=== PATIENT | female | born 1940 | race Caucasian/White ===

== ENCOUNTER 2019-03-28 13:04 | Emergency (ER) | payer MEDICARE, OTHER ==
[~2019-03-28] VITALS: Ht 177.8 cm; Wt 62.6 kg
--- OUTSIDE RECORDS SUMMARY | 2019-03-28 13:11 | XMS REPORT ---
Author Author Christian Granda Organization [employer] Address Unknown Phone Unavailable Care Team Providers Care Medical Assembler Name Role Phone Christian Granda CP Unavailable Allergies, Adverse Reactions, Alerts Substance Reaction Event Type Codeine Sulfate Info Not Available Drug Allergy Problems Problem Type Condition Code Onset Dates Condition Status Assessment Encounter for screening for malignant neoplasm of skin Z12.83 Active Assessment Actinic keratosis L57.0 Active Problem Personal history of other malignant neoplasm of skin Z85.828 Active Assessment Lentigo L81.4 Active Assessment Seborrheic keratoses L82.1 Active Assessment Benign neoplasm of skin of trunk, except scrotum D23.5 Active Medications Medication Code System Code Instructions Start Date End Date Status Dosage Provera [facility] [address]-04 not defined Vitamin B 12 [facility] [address] not defined Synthroid [facility] [address]-86 not defined Zocor [facility] [address]-26 not defined Estradiol [facility] [address]-73 not defined Vitamin D [facility] [address]-87 not defined Adalat CC [facility] [address]-13 not defined Procedures Procedure Coding System Code Date DESTROY LESIONS, 2-14, EACH CPT-4 11950 Aug 24, 2016 Office Visit, Est Pt., Level 4 CPT-4 50722 Aug 24, 2016 DESTROY BENIGN/PREMAL LESION CPT-4 66033 Aug 24, 2016 Vital Signs Date/Time: Aug 24, 2016 Blood Pressure Diastolic 78 mm Hg Blood Pressure Systolic 132 mm Hg Cardiac Monitoring Heart Rate 80 /min BMI 19.52 Index Weight 140 lbs Height 71 in Results No Known Results Summary Purpose [employer] Submission
[2019-03-28] MEDS ORDERED: AUGMENTIN 875 MG TAB (AMOXICILLIN/CLAVULANATE) PO STA (13:23)
[2019-03-28] MEDS ORDERED: NEO/POLY/BAC (NEOSPORIN) OINT 15 GM TUBE TOP STA (13:23)
[2019-03-28 13:29] VITALS: BP 150/56
[2019-03-28] MEDS ORDERED: ACETAMINOPHEN 325 MG TABLET PO ONE (13:30)
--- NOTE | 2019-03-28 13:36 | ED Integumentary General ---
General Chief Complaint: Skin/Wound Problems Stated Complaint: LT HAND SKIN TEAR Nursing Triage Note: PT HAS A U-SHAPED SKIN TEAR ON THE DORSAL SIDE OF HER LEFT HAND AFTER BATHING HER DOG AND HE SCRATCH HER. THE DOG IS UP TODATEON SHOTS AND THE PT STATES SHE IS UP TO DATEON HER TETANUS. History of Present Illness Date Seen by Provider: Mar 28, 2019 Time Seen by Provider: 13:15 Initial Comments The patient is an 78-year-old female whose tetanus is up-to-date. She presents with concern for a superficial skin tear to the dorsal aspect of her left hand, radial side, with onset just prior to arrival when she was bathing her small dog and it playfully nipped at her. Wound is hemostatic and she endorses no discomfort of any kind to the site. The dog's immunizations are up-to-date. Patient denies any pain to digits or hand or wrist or forearm or elbow and is resting comfortably in absolutely no distress. No therapy for discomfort prior to arrival. The patient did use mupirocin on the wound prior to coming here. Allergies and Home Medications Allergies Coded Allergies: codeine (Verified Allergy, Intermediate, ALTERED MENTAL STATUS, 03/28/19) Patient Home Medication List Home Medication List Reviewed: Yes Review of Systems Review of Systems Constitutional: see HPI All Other Systems Reviewed Negative Unless Noted: Yes Past Eqsvffr-Zbdiir-Axxdot Hx Past Med/Social Hx: Reviewed Nursing Past Med/Soc Hx Patient Social History Alcohol Use: Denies Use Recreational Drug Use: No Smoking Status: Never a Smoker 2nd Hand Smoke Exposure: No Recent Foreign Travel: No Contact w/Someone Who Travel: No Recent Infectious Disease Expo: No Physical Abuse: No Sexual Abuse: No Mistreated: No Fear: No Family Medical History Reviewed Nursing Family Hx Physical Exam Vital Signs Vital Signs - First Documented 03/28/19 13:10 Temp 98.1 Pulse 70 Resp 18 B/P (MAP) 150/56 (87) Pulse Ox 98 O2 Delivery Room Air Capillary Refill : Less Than 3 Seconds General Appearance: no apparent distress Comments This is an elderly female appearing nontoxic and in no acute distress. Head is normocephalic and atraumatic. Neck is supple and nontender. Oropharynx is moist. Lungs are clear to auscultation at all stations. There is normal S1 and S2 without rubs or gallops At refill is appropriate, less 2 seconds globally. Abdomen is soft, nontender and nondistended. Skin is warm and dry without cyanosis, clubbing or edema. Psychiatrically, the patient given strict appropriate mood and affect and is alert. From a musculoskeletal standpoint, evaluation of the left upper extremity reveals a superficial skin tear which is flap-like and about 8 cm in length and is hemostatic to the dorsal radial aspect of the left hand. There is no tenderness to the site. There is no pain with ranging of left digits, wrist, elbow or shoulder. The left upper extremity is neurovascularly intact with strength 5 out of 5, sensation intact to light touch in all nerve distributions, radial pulse 2+, capillary refill less than 2 seconds, hand warm and well-perfused. Procedures/Interventions Wound Location: Upper Extremities Wound Length (cm): 8 Wound's Depth, Shape: superficial, flap Wound Explored: clean Other Closure Supply: Wound Adhesive Layer Closure?: 1 Progress/Results/Core Measures Results/Orders My Orders Orders - ACE LOVELL MD Amoxicillin/Clavulanate Tablet (Augmenti (03/28/19 13:23) South/Poly/Danielle Topical Ointment (Neosporin (03/28/19 13:23) Acetaminophen Tablet/Caplet (Tylenol T (03/28/19 13:30) Vital Signs/I&O 03/28/19 13:10 Temp 98.1 Pulse 70 Resp 18 B/P (MAP) 150/56 (87) Pulse Ox 98 O2 Delivery Room Air Blood Pressure Mean: 87 Progress Progress Note : Time: 13:34 Progress Note Clinical examination reassuring. Superficial skin tear by the patient's dog whose immunizations are up-to-date. The patient's tetanus is up-to-date. Patient has absolutely no pain and there is only a superficial skin tear so I feel no x- rays are indicated in this case. Will wash out wound and apply Neosporin and the n used Dermabond to repair. We'll discharge with Augmentin and the patient may use Tylenol as needed for discomfort at home. She understands and agrees with the plan of care. Patient is counseled to follow up very closely with primary care in next 1-2 days and to return immediately if symptoms worsen or if other new symptoms or concerns develop. HER answer. Departure Impression Primary Impression: Skin tear of left hand without complication Qualified Codes: S61.412A - Laceration without foreign body of left hand, initial encounter Additional Impression: Dog bite of left hand without complication Qualified Codes: S61.452A - Open bite of left hand, initial encounter; W54.0XXA - Bitten by dog, initial encounter Disposition: HOME, SELF-CARE Condition: Improved Departure-Patient Inst. Referrals: REINA ONEAL DO (PCP/Family) Primary Care Physician Patient Instructions: Wound Care, Wound Care (DC) Add. Discharge Instructions: Follow-up very closely with her primary care physician in the next 1-2 days. You may use Tylenol as needed for discomfort at home. Take the Augmentin until the prescription is gone. Return right away for worsening symptoms or other new concerns. Scripts Amoxicillin/Potassium Clav (Augmentin 875-125 Tablet) 1 Each Tablet 1 TAB PO BID for 10 Days, #20 TAB 0 Refills Prov: ACE LOVELL MD 03/28/19 ACE LOVELL MD Mar 28, 2019 13:35
[2019-03-28] MEDS ORDERED: AMOX-358 PO (13:39)
== END 2019-03-28 13:54 | disposition home or self-care (01) ==
LOC: EDUNIT# 13:04 → ER FS 13:07
DX: S61.452A Open bite of left hand, initial encounter (principal); Z88.5 Allergy status to narcotic agent; W54.0XXA Bitten by dog, initial encounter

== ENCOUNTER → 2019-06-20 | Outpatient (CLI) | payer MEDICARE, OTHER ==
[~2019-06-20] MED LIST: AMOX-358 PO
--- NOTE | 2019-06-20 15:42 | Diagnostic Imaging Report ---
PROCEDURE: US abdomen complete. TECHNIQUE: Multiple real-time grayscale images were obtained over the abdomen in various projections. INDICATION: Right upper quadrant pain. FINDINGS: The liver appears normal. Gallbladder appears normal. There is no intra or extrahepatic bile duct dilatation. The partially visualized pancreas is normal where seen. Portions of its tail and lower head are obscured. Spleen is nonfocal and normal in size. The aorta is nonaneurysmal but does show echogenic smyth, likely atherosclerotic plaque. The unobstructed right kidney measures 9.5 cm and appears normal. The left kidney is surgically absent. There is no ascites and there is no fluid collection. IMPRESSION: Solitary unobstructed normal right kidney, absent left kidney. No hepatobiliary abnormality, ascites, or fluid collection. Dictated by: Dictated on workstation # [id number]
== END ==
LOC: RAD 08:16
PROVIDERS: ATTEND Pediatrics
DX: R10.11 Right upper quadrant pain (principal); Z90.5 Acquired absence of kidney
CPT/HCPCS: 76700

== ENCOUNTER → 2019-07-05 | Outpatient (CLI) | payer MEDICARE, OTHER ==
[~2019-07-05] MED LIST changes: +CATHETER FLUSH 10 ML SYR IV PRN
--- NOTE | 2019-07-05 16:20 | Diagnostic Imaging Report ---
INDICATION: Right upper quadrant pain. TECHNIQUE: Patient was administered 4.5 mCi technetium 99m Choletec intravenously and imaging over the abdomen was performed. At one hour, patient ingested 8 ounces of Ensure and a gallbladder ejection fraction was calculated. FINDINGS: There is homogeneous uptake of activity by the liver. Prompt excretion of activity into the common duct with passage into the gallbladder is noted. There is normal passage into the small bowel. Gallbladder ejection fraction is normal at 42%. IMPRESSION: Normal HIDA scan and gallbladder ejection fraction. Dictated by: Dictated on workstation # [id number]
== END ==
LOC: CARD 12:31
PROVIDERS: ATTEND Pediatrics
DX: R10.11 Right upper quadrant pain (principal)
CPT/HCPCS: 78227

== ENCOUNTER → 2019-07-07 | Outpatient (CLI) | payer MEDICARE, OTHER ==
[~2019-07-07] MED LIST changes: -CATHETER FLUSH 10 ML SYR IV PRN
[2019-07-07 14:25] LABS: CALCIUM 9.6 MG/DL (8.5-10.1); CREATININE SERUM 1.27 MG/DL (0.60-1.30); POTASSIUM 4.4 MMOL/L (3.6-5.0)
== END ==
LOC: LAB FS 13:16
PROVIDERS: ATTEND Pediatrics
DX: R10.11 Right upper quadrant pain (principal)
CPT/HCPCS: 36415; 80048

== ENCOUNTER → 2019-07-10 | Outpatient (CLI) | payer MEDICARE, OTHER ==
--- NOTE | 2019-07-10 15:49 | Diagnostic Imaging Report ---
PROCEDURE: CT abdomen and pelvis without contrast. TECHNIQUE: Multiple contiguous axial images were obtained through the abdomen and pelvis without the use of intravenous contrast. Auto Exposure Controls were utilized during the CT exam to meet ALARA standards for radiation dose reduction. INDICATION: Epigastric pain and nausea. COMPARISON: No prior CT studies are available for comparison. FINDINGS: Lung bases are free of acute infiltrates. No discrete liver mass is identified. Gallbladder appears to be contracted. No biliary ductal dilatation is seen. Pancreas is atrophic. Spleen is small. No adrenal mass is seen. The left kidney is surgically absent. No mass in the left renal fossa is identified. Right kidney does contain a tiny nonobstructing calculus. No hydronephrosis is identified. Aorta and iliac vessels are heavily calcified but nonaneurysmal. The small and large bowel loops are normal in caliber. There is no obstruction. There is moderate stool throughout the colon. No ascites is noted. No definite abdominal or pelvic lymphadenopathy is seen. 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 IMPRESSION: 1. Nonobstructing right-sided nephrolithiasis. Left kidney is surgically absent. 2. Moderate stool throughout the colon suggestive of constipation. 3. No acute feature in the abdomen or pelvis is identified. Dictated by: Dictated on workstation # [id number]
== END ==
LOC: RAD 15:03
PROVIDERS: ATTEND Pediatrics
DX: N20.0 Calculus of kidney (principal); R11.0 Nausea; Z90.5 Acquired absence of kidney
CPT/HCPCS: 74176

== ENCOUNTER 2019-09-17 22:24 | Emergency (ER) | payer MEDICARE, OTHER ==
[~2019-09-17] VITALS: Ht 147 cm; Wt 61.4 kg
[2019-09-17] MEDS ORDERED: fentaNYL INJECTION 100 MCG/2 ML AMP IVP ONE (22:45)
[2019-09-17] MEDS ORDERED: PANTOPRAZOLE 40 MG (PROTONIX) VIAL IV ONE (22:45)
--- NOTE | 2019-09-17 22:54 | ED Abdominal Pain ---
General Stated Complaint: ABD PAIN Source of Information: Patient, Family (son Nahed) Exam Limitations: No Limitations History of Present Illness Date Seen by Provider: Sep 17, 2019 Time Seen by Provider: 22:36 Initial Comments The patient presents to ER by private conveyance with her son and chief complaint of 10 days progressively worsening abdominal pain wrapping across the anterior abdomen worse with movement, lying flat, bending over or standing up. She's not having any nausea or vomiting. She rates the pain as an 8 out of 10. She was able to pass a normal formed stool today and then 2 small soft watery stools since then. She does not take Tylenol or ibuprofen because she has a history of left kidney resection secondary to cancer. No radiation or chemotherapy. She also had breast cancer last year but no radiation or chemotherapy. She also had her appendix taken out and a partial colon resection secondary to a perforation by colonoscopy. She does not routinely take pain medications. She follows with Dr. Kidd and recently he is been treating her for stomach ulcers with Carafate and acid reducers. She has not taken any antacids in the past 10 days for her stomach pain. She denies any fevers or chills. She has a history of left carotid endarterectomy and her right they are just watching it's at 79% for the past several years. Allergies and Home Medications Allergies Coded Allergies: codeine (Verified Allergy, Intermediate, ALTERED MENTAL STATUS, 03/28/19) Home Medications Amoxicillin/Potassium Clav 1 Each Tablet, 1 TAB PO BID Prescribed by: ACE LOVELL on 03/28/19 2643 Patient Home Medication List Home Medication List Reviewed: Yes Review of Systems Review of Systems Constitutional: No chills, No diaphoresis, No fever EENTM: No Blurred Vision, No Double Vision Respiratory: Denies Cough, Denies Shortness of Air Cardiovascular: See HPI; Denies Chest Pain, Denies Edema Gastrointestinal: See HPI, Abdominal Pain; Denies Constipated; Diarrhea; Denies Nausea Genitourinary: Denies Burning, Denies Discharge Musculoskeletal: No back pain, No joint pain Skin: No change in color, No pruritus, No rash Psychiatric/Neurological: Denies Anxiety, Denies Depressed All Other Systems Reviewed Negative Unless Noted: Yes Past Asrtoho-Gazxom-Slydrd Hx Patient Social History Alcohol Use: Denies Use Recreational Drug Use: No Smoking Status: Current Everyday Smoker Type Used: Cigarettes (0.25 ppd) 2nd Hand Smoke Exposure: No Recent Foreign Travel: No Contact w/Someone Who Travel: No Physical Exam Vital Signs Capillary Refill : Height/Weight/BMI Height: 5'10.00" Weight: 138lbs. oz. 62.925897ll; BMI Method:Stated General Appearance: WD/WN, mild distress HEENT: PERRL/EOMI, pharynx normal Neck: full range of motion, normal inspection Respiratory: chest non-tender, lungs clear, normal breath sounds, no respiratory distress, no accessory muscle use Cardiovascular: normal peripheral pulses, regular rate, rhythm, no edema, meade tolic murmur (3/6) Peripheral Pulses: 2+ Radial Pulses (R), 2+ Radial Pulses (L) Gastrointestinal: normal bowel sounds (active), soft, no organomegaly; No guarding, No rebound; tenderness (across the umbilicus right and left.), other (abdominal bruit auscultated.) Extremities: normal range of motion, non-tender, normal capillary refill Neurologic/Psychiatric: alert, normal mood/affect, oriented x 3 Skin: normal color, warm/dry Focused Exam Lactate Level 09/17/19 22:51: Lactic Acid Level 1.32 Lactic Acid Level Laboratory Tests Test 09/17/19 22:51 Lactic Acid Level 1.32 MMOL/L (0.50-2.00) Progress/Results/Core Measures Results/Orders Lab Results Laboratory Tests Test 09/17/19 22:30 09/17/19 22:51 09/17/19 23:10 Range/Units Urine Color YELLOW Urine Clarity CLEAR Urine pH 6.0 5-9 Urine Specific [place] 10.10 1.016-1.022 Urine Protein NEGATIVE NEGATIVE Urine Glucose (UA) NEGATIVE NEGATIVE Urine Ketones NEGATIVE NEGATIVE Urine Nitrite NEGATIVE NEGATIVE Urine Bilirubin NEGATIVE NEGATIVE Urine Urobilinogen 0.2 < = 1.0 MG/DL Urine Leukocyte Esterase NEGATIVE NEGATIVE Urine RBC (Auto) NEGATIVE NEGATIVE Urine RBC NONE /HPF Urine WBC 2-5 /HPF Urine Squamous Epithelial Cells 10-25 H /HPF Urine Crystals NONE /LPF Urine Bacteria TRACE /HPF Urine Casts PRESENT /LPF Urine Hyaline Casts 2-5 H /LPF Urine Mucus NEGATIVE /LPF Urine Culture Indicated NO White Blood Count 9.4 4.3-11.0 10^3/uL Red Blood Count 4.07 L 4.35-5.85 10^6/uL Hemoglobin 13.1 11.5-16.0 G/DL Hematocrit 40 35-52 % Mean Corpuscular Volume 98 80-99 FL Mean Corpuscular Hemoglobin 32 25-34 PG Mean Corpuscular Hemoglobin Concent 33 32-36 G/DL Red Cell Distribution Width 12.0 10.0-14.5 % Platelet Count 264 130-400 10^3/uL Mean Platelet Volume 10.5 H 7.4-10.4 FL Neutrophils (%) (Auto) 62 42-75 % Lymphocytes (%) (Auto) 24 12-44 % Monocytes (%) (Auto) 12 0-12 % Eosinophils (%) (Auto) 1 0-10 % Basophils (%) (Auto) 1 0-10 % Neutrophils # (Auto) 5.8 1.8-7.8 X 10^3 Lymphocytes # (Auto) 2.2 1.0-4.0 X 10^3 Monocytes # (Auto) 1.2 H 0.0-1.0 X 10^3 Eosinophils # (Auto) 0.1 0.0-0.3 10^3/uL Basophils # (Auto) 0.1 0.0-0.1 10^3/uL Sodium Level 137 135-145 MMOL/L Potassium Level 4.2 3.6-5.0 MMOL/L Chloride Level 100 98-107 MMOL/L Carbon Dioxide Level 23 21-32 MMOL/L Anion Gap 14 5-14 MMOL/L Blood Urea Nitrogen 24 H 7-18 MG/DL Creatinine 1.39 H 0.60-1.30 MG/DL Estimat Glomerular Filtration Rate 36 BUN/Creatinine Ratio 17 Glucose Level 110 H 70-105 MG/DL Lactic Acid Level 1.32 0.50-2.00 MMOL/L Calcium Level 9.8 8.5-10.1 MG/DL Corrected Calcium 9.7 8.5-10.1 MG/DL Total Bilirubin 0.2 0.1-1.0 MG/DL Aspartate Amino Transf (AST/SGOT) 23 5-34 U/L Alanine Aminotransferase (ALT/SGPT) 13 0-55 U/L Alkaline Phosphatase 92 40-136 U/L Total Protein 8.1 6.4-8.2 GM/DL Albumin 4.1 3.2-4.5 GM/DL Lipase 48 8-78 U/L D-Dimer 1.81 H 0.00-0.49 UG/ML My Orders Orders - LAMAR PACE Ua Culture If Indicated (09/17/19 22:26) Ct Abdomen/Pelvis Wo (09/17/19 22:44) Ed Iv/Invasive Line Start (09/17/19 22:44) Fentanyl Injection (Sublimaze Injection (09/17/19 22:45) Pantoprazole Injection (Protonix Injecti (09/17/19 22:45) Cbc With Automated Diff (09/17/19 22:44) Comprehensive Metabolic Panel (09/17/19 22:44) Lactic Acid Analyzer (09/17/19 22:44) Lipase (09/17/19 22:44) Fibrin Degradation Products (09/17/19 23:30) Lidocaine 2% Viscous 15 Ml (Xylocaine Vi (09/18/19 00:00) Antacid Suspension (Mylanta Suspension (09/18/19 00:00) Medications Given in ED Current Medications Medications Dose Ordered Sig/Brenda Route Start Time Stop Time Status Last Admin Dose Admin Al Hydrox/Mg Hydrox/Simethicone 30 ml ONCE ONCE PO 09/18/19 00:00 09/18/19 00:01 DC 09/17/19 23:59 30 ML Fentanyl Citrate 50 mcg ONCE ONCE IVP 09/17/19 22:45 09/17/19 22:47 DC 09/17/19 22:59 50 MCG Lidocaine HCl 15 ml ONCE ONCE PO 09/18/19 00:00 09/18/19 00:01 DC 09/17/19 23:59 15 ML Pantoprazole 40 mg ONCE ONCE IV 09/17/19 22:45 09/17/19 22:47 DC 09/17/19 22:59 40 MG Progress Progress Note #1: Time: 22:55 Progress Note Lactic acid thinking about mesenteric ischemia. Her abdominal bruit she says no one has ever mentioned before. She has a cardiac murmur which could explain the bruit. The pattern of a 10 day progressive pain in her abdomen does not match with a dissection or tear of the intima. She does not have any hemodynamic instability or diminished pulse pressures in her legs or feet. We can get a d- dimer which will help us rule out out but will be useless if it's positive. GI would be most likely, bowel obstruction would also be possible or even early diverticulitis. Because of her history of nephrectomy we will be able to use contrast for an angiogram of her abdominal aorta that we can at least look at it on a noncontrast CT. For her pain we'll give her 50 g of fentanyl. Her vital signs are aseptic. Basic labs to include a lipase for pancreatitis. If her CT is unremarkable we could trial a GI cocktail see if that helps her symptoms. Progress Note #2: Time: 23:54 Progress Note The patient's pain is significantly improved with fentanyl. She still having some discomfort so we'll try a GI cocktail see if this can help us locate a source of her discomfort. She has a benign abdominal exam now and aseptic vital signs. Normal lactic acid makes a significant mesenteric ischemia unlikely. D- dimer failed to rule out. No evidence of bowel obstruction noted on CT. Progress Note #3: Time: 00:47 Progress Note The GI cocktail did not help her discomfort at all. She is however much more comfortable and we are unable to locate any emergent pathology. She still has aseptic vital signs and a benign exam. She still having mild discomfort that's made better by sitting up. She says she's had ultrasound and HIDA scan of her gallbladder. Were not able to rule out a dissection or even a significant atherosclerotic or ischemic disease of the mesentery so perhaps a MRA could be useful on the outpatient basis. We will recommend she follow up with primary care this week to discuss further workup. We have given her return precautions. We'll also provide her with a few hydrocodone to help in case the pain gets out of control. Diagnostic Imaging Diagonstic Imaging: CT (without IV contrast) Plain Films/CT/US/NM/MRI: abdomen, pelvis Comments Heavy atherosclerosis in the abdominal aorta without obvious dissection or aneurysm. 3 mm nonobstructing stone in the solitary right kidney. Post left nephrectomy. Otherwise unremarkable exam with no acute findings. Reviewed: Reviewed [place] Hawk Study, Reviewed by Me Departure Impression Primary Impression: Right-sided abdominal pain of unknown etiology Disposition: 01 HOME, SELF-CARE Condition: Improved Departure-Patient Inst. Decision time for Depature: 00:48 Referrals: TREY KIDD MD (PCP/Family) Primary Care Physician Patient Instructions: Acute Abdomen (Belly Pain) Add. Discharge Instructions: Stay well-hydrated with plenty of fluids. You may use the hydrocodone one tablet every 6 hours as needed for severe pain keeping you from being functional. If you use hydrocodone will cause constipation and I would recommend MiraLAX 1 capful in 6 ounces of fluids daily. Please call Dr. Kidd and request follow-up appointment for further workup of your abdominal discomfort. If you have severe, unrelenting pain, nausea or vomiting, fever or other worrisome symptoms then please return to the ER. Scripts Hydrocodone Bit/Acetaminophen (Hydrocodone/Acetaminophen 5/325mg Tablet) 1 Tab Tab 1 EACH PO Q4-6HR PRN for PAIN-MODERATE MDD 10 for 3 Days, #10 TAB 0 Refills Prov: LAMAR PACE 09/18/19 Copy Copies To 1: TREY KIDD MD, TITUS J Sep 17, 2019 22:54 POS
[2019-09-17 22:56] LABS: BACTERIA,URINE TRACE /HPF; BILIRUBIN,URINE NEGATIVE (NEGATIVE); CLARITY,URINE CLEAR; COLOR,URINE YELLOW; GLUCOSE, URINE (UA) NEGATIVE (NEGATIVE); KETONES,URINE NEGATIVE (NEGATIVE); LEUKOCYTE ESTERASE ,URINE NEGATIVE (NEGATIVE); NITRITE,URINE NEGATIVE (NEGATIVE); PROTEIN,URINE NEGATIVE (NEGATIVE)
[2019-09-17 23:01] LABS: BASOPHILS % (AUTO) 1 % (0-10); EOSINOPHILS % (AUTO) 1 % (0-10); HEMATOCRIT 40 % (35-52); HEMOGLOBIN 13.1 G/DL (11.5-16.0); LYMPHOCYTES # (AUTO) 2.2 X 10^3 (1.0-4.0); LYMPHOCYTES % (AUTO) 24 % (12-44); MEAN CORPUSCULAR HEMOGLOBIN 32 PG (25-34); MEAN CORPUSCULAR HGB CONC 33 G/DL (32-36); MEAN CORPUSCULAR VOLUME 98 FL (80-99); MEAN PLATELET VOLUME 10.5 FL (7.4-10.4); MONOCYTES # (AUTO) 1.2 X 10^3 (0.0-1.0); MONOCYTES % (AUTO) 12 % (0-12); NEUTROPHILS # (AUTO) 5.8 X 10^3 (1.8-7.8); NEUTROPHILS % (AUTO) 62 % (42-75); PLATELET COUNT 264 10^3/uL (130-400); WHITE BLOOD COUNT 9.4 10^3/uL (4.3-11.0)
[2019-09-17 23:02] LABS: BASOPHILS # (AUTO) 0.1 10^3/uL (0.0-0.1); EOSINOPHILS # (AUTO) 0.1 10^3/uL (0.0-0.3)
[2019-09-17 23:23] LABS: ALBUMIN 4.1 GM/DL (3.2-4.5); BILIRUBIN,TOTAL 0.2 MG/DL (0.1-1.0); CALCIUM 9.8 MG/DL (8.5-10.1); CREATININE SERUM 1.39 MG/DL (0.60-1.30); POTASSIUM 4.2 MMOL/L (3.6-5.0); TOTAL PROTEIN 8.1 GM/DL (6.4-8.2)
[2019-09-18] MEDS ORDERED: ANTACID SUSP 30 ML UDC (MYLANTA) PO ONE
[2019-09-18] MEDS ORDERED: LIDOCAINE 2% VISCOUS 15 ML UDC PO ONE
[2019-09-18] MEDS ORDERED: ACHD5005 PO (00:50)
[2019-09-18 01:00] VITALS: BP 166/74
[2019-09-18] MEDS ORDERED: RX-HYDROCODONE/APAP 5/325 MG #4 TAB PK PO PRN (01:00)
--- NOTE | 2019-09-18 07:25 | Diagnostic Imaging Report ---
CT ABDOMEN/PELVIS WO TECHNIQUE: Unenhanced CT imaging of the abdomen and pelvis was performed. 2-D reformats are created and submitted for interpretation. Automatic exposure controls were utilized to optimize patient dose. INDICATION: Lower abdominal pain COMPARISON: 07/10/2019 FINDINGS: Evaluation of the abdominal viscera is mildly limited without contrast. Lower chest: The lung bases are clear. No pericardial or pleural effusion. Peritoneum: Emphysema is noted in lung bases. Stable line within the left lung base is also noted which may be from prior biopsy or resection. Liver and biliary system: Unenhanced liver is normal. The gallbladder is normal. No biliary duct obstruction. Spleen and Pancreas: Spleen is normal. Unenhanced pancreas is grossly normal. Adrenals: Normal. tract: Status post left nephrectomy. There is a 3 mm nonobstructing stone in the central aspect of the right kidney. No right-sided ureteral stone. Urinary bladder is decompressed, limiting assessment. Uterus and ovaries are normal in appearance for patient's age. GI tract: Stomach is partially filled with fluid and food debris and there is no wall thickening. No bowel obstruction. No pericolonic inflammatory changes. Appendix is not seen with certainty although there are no features to suggest acute appendicitis. Vasculature and Lymph nodes: Normal caliber aorta. Extensive atherosclerotic plaquing is present No abdominal or pelvic lymphadenopathy. Musculoskeletal: No concerning osseous lesion. IMPRESSION: 1. Nonobstructing 3 mm stone in the right kidney is stable since prior exam. No obstructive uropathy. 2. No acute inflammatory or obstructive process by noncontrast imaging. 3. Findings are in agreement with the preliminary report. Dictated by: Dictated on workstation # [id number]
== END 2019-09-18 01:00 | disposition home or self-care (01) ==
LOC: EDUNIT# 22:24 → ER FS 22:25
DX: R10.33 Periumbilical pain (principal); F17.210 Nicotine dependence, cigarettes, uncomplicated; Z88.5 Allergy status to narcotic agent; Z85.3 Personal history of malignant neoplasm of breast
CPT/HCPCS: 36415; 74176; 80053; 81000; 83605; 83690; 85025; 85379; 96374; 96375

== ENCOUNTER 2019-11-27 16:14 | Emergency (ER) | payer MEDICARE, OTHER ==
[~2019-11-27] VITALS: Ht 177 cm; Wt 59.7 kg
[~2019-11-27 16:14] MED LIST changes: +ACHD5005 PO
[2019-11-27] MEDS ORDERED: fentaNYL INJECTION 100 MCG/2 ML AMP IVP ONE (16:45)
--- NOTE | 2019-11-27 16:50 | ED GI ---
General Chief Complaint: Abdominal/GI Problems Stated Complaint: HIGH BLOOD PRESSURE,ABD PAIN Nursing Triage Note: PT REPORTS ONGOING ABD ISSUES. SHE HAS BEEN SEEN AT AND DR KIDD FOR THE ABD PAIN. SHE COMES TODAY FOR HIGH BLOOD PRESSURE BC HER NEIGHBOR IS A RETIRED NURSE AND THOUGHT SHE SHOULD BE SEEN. SHE WENT TO DR. KOHLI OFFICE BUT HIS NURSE SENT HER TO THE ER. Sepsis Screen: No Definite Risk Source of Information: Patient Exam Limitations: No Limitations History of Present Illness Date Seen by Provider: Nov 27, 2019 Time Seen by Provider: 16:39 Initial Comments Patient presents with chronic upper abdominal pain that she's had since 2017. Currently followed by chemical reclamation equipment operator @ with current plans for an EGD as well as an MRA of the abdomen in 1 month. Patient states she is abdominal pain most every day, although some days are better than others. Has not taken anything that is after alleviated her pain. Her appetite has been suppressed, although she denies nausea vomiting or change in bowel pattern. Denies fever or chills or significant weight loss. Denies chest pain, although this morning she had some lower chest pain just above her abdomen that lasted for a couple minutes. She took an aspirin and the pain went away. Currently denies any chest pain. Denies history of coronary artery disease, however she does take cholesterol medicine and blood pressure meds. Today concerned that her blood pressure was noted to be high by her neighbor who took her blood pressure. Allergies and Home Medications Allergies Coded Allergies: codeine (Verified Allergy, Intermediate, ALTERED MENTAL STATUS, 03/28/19) Home Medications Amoxicillin/Potassium Clav 1 Each Tablet, 1 TAB PO BID Prescribed by: ACE LOVELL on 03/28/19 1339 Hydrocodone Bit/Acetaminophen 1 Tab Tab, 1 EACH PO Q4-6HR PRN for PAIN-MODERATE Prescribed by: LAMAR PACE on 09/18/19 0050 Patient Home Medication List Home Medication List Reviewed: Yes Review of Systems Review of Systems Constitutional: see HPI; No fever, No malaise, No weakness Respiratory: No Symptoms Reported, See HPI; Denies Cough, Denies Shortness of Air, Denies Stridor, Denies Wheezing Cardiovascular: See HPI, Chest Pain (few minutes this morning, resolved); Denies Palpitations, Denies Syncope Gastrointestinal: See HPI, Abdominal Pain; Denies Constipated, Denies Diarrhea, Denies Difficulty Swallowing, Denies Nausea; Poor Appetite; Denies Vomiting Genitourinary: Denies Burning, Denies Frequency, Denies Flank Pain Musculoskeletal: No back pain, No joint pain Past Txwqogi-Uctapr-Clgpdh Hx Past Med/Social Hx: Reviewed Nursing Past Med/Soc Hx Patient Social History Alcohol Use: Denies Use Recreational Drug Use: No Smoking Status: Current Everyday Smoker Type Used: Cigarettes 2nd Hand Smoke Exposure: No Recent Foreign Travel: No Contact w/Someone Who Travel: No Recent Infectious Disease Expo: No Recent Hopitalizations: No Physical Abuse: No Sexual Abuse: No Mistreated: No Fear: No Seasonal Allergies Seasonal Allergies: No Past Medical History Surgeries: Yes (Left Kidney Removal, Colon Resection) Appendectomy Respiratory: No Cardiac: No Neurological: No Genitourinary: No Gastrointestinal: No Musculoskeletal: Yes Chronic Back Pain Endocrine: No HEENT: No Cancer: Yes Kidney Psychosocial: No Physical Exam Vital Signs Vital Signs - First Documented 11/27/19 11/27/19 16:33 17:40 Temp 36.1 Pulse 89 Resp 18 B/P (MAP) 177/78 (111) Pulse Ox 97 O2 Delivery Room Air Capillary Refill : Less Than 3 Seconds Height/Weight/BMI Height: 5'10.00" Weight: 138lbs. oz. 62.385775ny; 19.00 BMI Method:Stated General Appearance: WD/WN, no apparent distress HEENT: normal ENT inspection Neck: non-tender, supple Respiratory: chest non-tender, lungs clear, normal breath sounds, no respiratory distress, no accessory muscle use Cardiovascular: regular rate, rhythm, no edema, no gallop, no JVD, no murmur Gastrointestinal: soft, no organomegaly, no pulsatile mass; No guarding, No rebound; tenderness (epigastric); No mass Extremities: normal range of motion, non-tender, no pedal edema, no calf tend erness Back: no CVA tenderness, no vertebral tenderness Neurologic/Psychiatric: no motor/sensory deficits, alert, normal mood/affect, oriented x 3 Skin: normal color, warm/dry Progress/Results/Core Measures Results/Orders Lab Results Laboratory Tests Test 11/27/19 16:47 Range/Units White Blood Count 7.9 4.3-11.0 10^3/uL Red Blood Count 4.15 L 4.35-5.85 10^6/uL Hemoglobin 13.3 11.5-16.0 G/DL Hematocrit 40 35-52 % Mean Corpuscular Volume 95 80-99 FL Mean Corpuscular Hemoglobin 32 25-34 PG Mean Corpuscular Hemoglobin Concent 34 32-36 G/DL Red Cell Distribution Width 13.2 10.0-14.5 % Platelet Count 206 130-400 10^3/uL Mean Platelet Volume 10.9 H 7.4-10.4 FL Neutrophils (%) (Auto) 61 42-75 % Lymphocytes (%) (Auto) 24 12-44 % Monocytes (%) (Auto) 13 H 0-12 % Eosinophils (%) (Auto) 2 0-10 % Basophils (%) (Auto) 1 0-10 % Neutrophils # (Auto) 4.8 1.8-7.8 X 10^3 Lymphocytes # (Auto) 1.9 1.0-4.0 X 10^3 Monocytes # (Auto) 1.0 0.0-1.0 X 10^3 Eosinophils # (Auto) 0.1 0.0-0.3 10^3/uL Basophils # (Auto) 0.1 0.0-0.1 10^3/uL Sodium Level 136 135-145 MMOL/L Potassium Level 4.4 3.6-5.0 MMOL/L Chloride Level 99 98-107 MMOL/L Carbon Dioxide Level 24 21-32 MMOL/L Anion Gap 13 5-14 MMOL/L Blood Urea Nitrogen 28 H 7-18 MG/DL Creatinine 1.81 H 0.60-1.30 MG/DL Estimat Glomerular Filtration Rate 27 BUN/Creatinine Ratio 15 Glucose Level 127 H 70-105 MG/DL Calcium Level 9.6 8.5-10.1 MG/DL Corrected Calcium 9.7 8.5-10.1 MG/DL Total Bilirubin 0.2 0.1-1.0 MG/DL Aspartate Amino Transf (AST/SGOT) 21 5-34 U/L Alanine Aminotransferase (ALT/SGPT) 14 0-55 U/L Alkaline Phosphatase 85 40-136 U/L Troponin I < 0.30 <0.30 NG/ML Total Protein 7.8 6.4-8.2 GM/DL Albumin 3.9 3.2-4.5 GM/DL Lipase 43 8-78 U/L My Orders Orders - ROVENSTINE,GABE L DO Cbc With Automated Diff (11/27/19 16:41) Comprehensive Metabolic Panel (11/27/19 16:41) Lipase (11/27/19 16:41) Troponin I Fs (11/27/19 16:41) Ekg Tracing (11/27/19 16:41) Fentanyl Injection (Sublimaze Injection (11/27/19 16:45) Medications Given in ED Current Medications Medications Dose Ordered Sig/Brenda Route Start Time Stop Time Status Last Admin Dose Admin Fentanyl Citrate 25 mcg ONCE ONCE IVP 11/27/19 16:45 11/27/19 16:46 DC 11/27/19 16:50 25 MCG Vital Signs/I&O 11/27/19 11/27/19 16:33 17:40 Temp 36.1 36.1 Pulse 89 82 Resp 18 18 B/P (MAP) 177/78 (111) 155/72 Pulse Ox 97 O2 Delivery Room Air Blood Pressure Mean: 111 Progress Progress Note : Time: 17:39 Progress Note Feeling better after IV fentanyl. Discussed follow-up w PCP this week to repeat labs and re-eval BP. Advised to drink more water (currently 6 10oz glasses/ d ay, advised increase to 8). Also asked about pain medication and patient admits she has hydrocodone, but is afraid to take it because of her kidney. Encouraged her and assured her that it would be ok to take it. Initial ECG Impression Date: Nov 27, 2019 Initial ECG Impression Time: 16:52 Initial ECG Rate: 79 Initial ECG Rhythm: Normal Sinus Initial ECG Intervals: Normal Initial ECG Impression: Normal Initial ECG Comparisson: No Previous ECG Available Departure Impression Primary Impression: Chronic epigastric pain Additional Impressions: Dehydration Hypertension Qualified Codes: I10 - Essential (primary) hypertension Disposition: 01 HOME, SELF-CARE Condition: Improved Departure-Patient Inst. Decision time for Depature: 17:28 Referrals: TREY KIDD MD (PCP/Family) Primary Care Physician Patient Instructions: Dehydration, Adult (DC), Ulcer and Gastritis Diet Add. Discharge Instructions: See your Primary Care doctor for re-evaluation in 1 week, sooner if worse. All discharge instructions reviewed with patient and/or family. Voiced understanding. GABE HAUSER DO Nov 27, 2019 16:50
[2019-11-27 16:55] LABS: BASOPHILS % (AUTO) 1 % (0-10); EOSINOPHILS % (AUTO) 2 % (0-10); HEMATOCRIT 40 % (35-52); HEMOGLOBIN 13.3 G/DL (11.5-16.0); LYMPHOCYTES % (AUTO) 24 % (12-44); MEAN CORPUSCULAR HEMOGLOBIN 32 PG (25-34); MEAN CORPUSCULAR HGB CONC 34 G/DL (32-36); MEAN CORPUSCULAR VOLUME 95 FL (80-99); MEAN PLATELET VOLUME 10.9 FL (7.4-10.4); MONOCYTES % (AUTO) 13 % (0-12); NEUTROPHILS # (AUTO) 4.8 X 10^3 (1.8-7.8); NEUTROPHILS % (AUTO) 61 % (42-75); PLATELET COUNT 206 10^3/uL (130-400); RED CELL DISTRIBUTION WIDTH 13.2 % (10.0-14.5); WHITE BLOOD COUNT 7.9 10^3/uL (4.3-11.0)
[2019-11-27 16:56] LABS: BASOPHILS # (AUTO) 0.1 10^3/uL (0.0-0.1); EOSINOPHILS # (AUTO) 0.1 10^3/uL (0.0-0.3); LYMPHOCYTES # (AUTO) 1.9 X 10^3 (1.0-4.0)
[2019-11-27 17:23] LABS: ALANINE AMINOTRANSFERASE 14 U/L (0-55); ALKALINE PHOSPHATASE 85 U/L (40-136); BILIRUBIN,TOTAL 0.2 MG/DL (0.1-1.0); BUN/CREATININE RATIO 15; CALCIUM 9.6 MG/DL (8.5-10.1); CARBON DIOXIDE 24 MMOL/L (21-32); CHLORIDE 99 MMOL/L (98-107); CREATININE SERUM 1.81 MG/DL (0.60-1.30); GFR ESTIMATED 27; GLUCOSE 127 MG/DL (70-105); POTASSIUM 4.4 MMOL/L (3.6-5.0); SODIUM 136 MMOL/L (135-145); TOTAL PROTEIN 7.8 GM/DL (6.4-8.2)
[2019-11-27 17:24] LABS: ALBUMIN 3.9 GM/DL (3.2-4.5); LIPASE 43 U/L (8-78)
[2019-11-27 17:40] VITALS: BP 155/72
== END 2019-11-27 17:44 | disposition home or self-care (01) ==
LOC: EDUNIT# 16:14 → ER FS 16:16
DX: G89.29 Other chronic pain (principal); R10.13 Epigastric pain; E86.0 Dehydration; I10 Essential (primary) hypertension; F17.210 Nicotine dependence, cigarettes, uncomplicated; Z88.5 Allergy status to narcotic agent; Z90.49 Acquired absence of other specified parts of digestive tract; Z85.528 Personal history of other malignant neoplasm of kidney
CPT/HCPCS: 36415; 80053; 83690; 84484; 85025; 93005; 96374

== ENCOUNTER 2020-06-21 15:46 | Emergency (ER) | payer MEDICARE, OTHER ==
[~2020-06-21] VITALS: Ht 177.8 cm; Wt 61.1 kg
[2020-06-21] MEDS ORDERED: BACITRACIN OINTMENT 28 GM TUBE ONE (16:20)
--- NOTE | 2020-06-21 16:22 | ED Upper Extremity ---
General Chief Complaint: Laceration Stated Complaint: LT ARM LAC/DOG SCRATCH Nursing Triage Note: Patient ambulatory to ED reporting her dog scratched her on left forearm. Pt is on Plavix but no bleeding is noted. Pt's tetanus is UTD. Pt's dog has vaccines UTD. Nursing Sepsis Screen: No Definite Risk History of Present Illness Date Seen by Provider: Jun 21, 2020 Time Seen by Provider: 16:15 Initial Comments accidental scratch to left forearm by her dog. Not a bite. Not malicious. No other injury or concern. Bleeding has stopped. Last Tetanus < 5 yrs. Onset: just prior to arrival Allergies and Home Medications Allergies Coded Allergies: codeine (Verified Allergy, Intermediate, ALTERED MENTAL STATUS, 03/28/19) Home Medications Amoxicillin/Potassium Clav 1 Each Tablet, 1 TAB PO BID Prescribed by: ACE LOVELL on 03/28/19 1339 Hydrocodone Bit/Acetaminophen 1 Tab Tab, 1 EACH PO Q4-6HR PRN for PAIN-MODERATE Prescribed by: LAMAR PACE on 09/18/19 0050 Patient Home Medication List Home Medication List Reviewed: Yes Review of Systems Constitutional: no symptoms reported Musculoskeletal: No back pain, No joint pain, No muscle pain, No muscle weakness Skin: see HPI, other (laceration left forearm.) Psychiatric/Neurological: Denies Numbness, Denies Paresthesia, Denies Weakness Past Xvwxouc-Jrzuwg-Izvcjv Hx Past Med/Social Hx: Reviewed Nursing Past Med/Soc Hx Patient Social History Alcohol Use: Denies Use Recreational Drug Use: No Type Used: Cigarettes 2nd Hand Smoke Exposure: No Recent Foreign Travel: No Contact w/Someone Who Travel: No Recent Infectious Disease Expo: No Recent Hopitalizations: No Physical Abuse: No Sexual Abuse: No Mistreated: No Fear: No Immunizations Up To Date Tetanus Booster (TDap): Less than 5yrs Seasonal Allergies Seasonal Allergies: No Past Medical History Surgeries: Yes (Left Kidney Removal, Colon Resection) Appendectomy Respiratory: No Cardiac: No Neurological: No Genitourinary: No Gastrointestinal: No Musculoskeletal: Yes Chronic Back Pain Endocrine: No HEENT: No Cancer: Yes Kidney Psychosocial: No Integumentary: No Blood Disorders: No Physical Exam Vital Signs Vital Signs - First Documented 06/21/20 15:50 Temp 37.0 Pulse 90 Resp 19 B/P (MAP) 140/63 (88) Pulse Ox 96 O2 Delivery Room Air Capillary Refill : Less Than 3 Seconds Height, Weight, BMI Height: 5'10.00" Weight: 138lbs. oz. 62.709194qu; 19.00 BMI Method:Stated General Appearance: WD/WN, no apparent distress Elbow/Forearm: non-tender, normal ROM, Left, soft tissue tenderness (laceration- forsum left proximal forearm. Flap like lac....3 cm ) Procedures/Interventions Wound Location: Upper Extremities Wound Length (cm): 3 Wound's Depth, Shape: flap, contused tissue Wound Explored: clean Irrigated w/ Saline (ccs): 20 Suture: Ethlion Suture Size: 4-0 Number of Sutures: 2 Sterile Dressing Applied?: Yes Progress very thin skin. able to partially approximate, but not at vertex of flap as skin tore. Pt tolerated well. Abx applied and sterile dressing. Progress/Results/Core Measures Results/Orders My Orders Orders - GABE HAUSER DO Lidocaine 1% Inj 20 Ml (Xylocaine 1% Inj (06/21/20 16:30) Bacitracin Ointment (Bacitracin Ointment (06/21/20 21:00) Bacitracin Ointment (Bacitracin Ointment (06/21/20 16:20) Medications Given in ED Current Medications Medications Dose Ordered Sig/Brenda Route Start Time Stop Time Status Last Admin Dose Admin Lidocaine HCl 20 ml ONCE ONCE INJ 06/21/20 16:30 06/21/20 16:31 DC 06/21/20 16:40 20 ML Vital Signs/I&O 06/21/20 06/21/20 15:50 16:54 Temp 37.0 37.0 Pulse 90 90 Resp 19 19 B/P (MAP) 140/63 (88) 140/63 (88) Pulse Ox 96 96 O2 Delivery Room Air Blood Pressure Mean: 88 Departure Impression Primary Impression: Laceration of forearm, left Qualified Codes: S51.812A - Laceration without foreign body of left forearm, initial encounter Disposition: HOME, SELF-CARE Condition: Stable Departure-Patient Inst. Referrals: TREY KIDD MD (PCP/Family) Primary Care Physician Patient Instructions: Laceration Repair With Stitches (DC) Add. Discharge Instructions: see your doctor in 1 week for removal of your stitches. All discharge instructions reviewed with patient and/or family. Voiced understanding. GABE HAUSER DO Jun 21, 2020 16:22
[2020-06-21] MEDS ORDERED: LIDOCAINE 1% INJ 20 ML 20 ML VIAL INJ ONE (16:30)
[2020-06-21 16:54] VITALS: BP 140/63
--- NOTE | 2020-06-21 16:54 | NUR ---
Pt departed ED after review of home instructions verbalized. Pt has deep cleaning of dog scratch wound with Sterile NS and Betasept irrigated via Intercath of a 22 ga IV. deep washing of would with copious amts. Dr closed wound with 4-0 Ethilon 2 sutures to just hold alittle of the skin flap edges. The skin is very thin and add'l sutures just pulled directly through and removed. Skin was prepared post suturing with Bacitracin, non-adherent dsg, and stretch roll gauze. Hemostasis is achieved. Reviewed signs and symptoms of infection or complications to report or be seen for. Sutures to be out in 1 week.
[2020-06-21] MEDS ORDERED: BACITRACIN OINTMENT 28 GM TUBE TOP SCH (21:00)
== END 2020-06-21 16:54 | disposition home or self-care (01) ==
LOC: EDUNIT# 15:46 → ER FS 15:47
DX: S51.812A Laceration without foreign body of left forearm, initial encounter (principal); G89.29 Other chronic pain; M54.9 Dorsalgia, unspecified; Z79.891 Long term (current) use of opiate analgesic; Z88.5 Allergy status to narcotic agent; Z85.528 Personal history of other malignant neoplasm of kidney; W54.8XXA Other contact with dog, initial encounter
CPT/HCPCS: 12001

== ENCOUNTER 2022-01-23 21:46 | Emergency (ER) | payer MEDICARE, OTHER ==
[2022-01-23 21:55] VITALS: BP 155/77
[2022-01-23 22:09] LABS: BASOPHILS # (AUTO) 0.1 10^3/uL (0.0-0.1); BASOPHILS % (AUTO) 1 % (0-10); EOSINOPHILS # (AUTO) 0.2 10^3/uL (0.0-0.3); EOSINOPHILS % (AUTO) 2 % (0-10); HEMATOCRIT 40 % (35-52); HEMOGLOBIN 13.5 g/dL (11.5-16.0); LYMPHOCYTES # (AUTO) 2.1 10^3/uL (1.0-4.0); LYMPHOCYTES % (AUTO) 28 % (12-44); MEAN CORPUSCULAR HEMOGLOBIN 33 pg (25-34); MEAN CORPUSCULAR HGB CONC 34 g/dL (32-36); MEAN CORPUSCULAR VOLUME 97 fL (80-99); MEAN PLATELET VOLUME 10.2 fL (9.0-12.2); MONOCYTES % (AUTO) 13 % (0-12); NEUTROPHILS # (AUTO) 4.3 10^3/uL (1.8-7.8); NEUTROPHILS % (AUTO) 57 % (42-75); PLATELET COUNT 213 10^3/uL (130-400); WHITE BLOOD COUNT 7.7 10^3/uL (4.3-11.0)
--- NOTE | 2022-01-23 22:13 | ED General ---
General Chief Complaint: Cardiac/General Problems Stated Complaint: IRREGULAR HEART BEAT Source of Information: Patient History of Present Illness Date Seen by Provider: Jan 23, 2022 Time Seen by Provider: 21:50 Initial Comments 81-year-old female presenting with complaints of 3 weeks of intermittent episodes of fast irregular heartbeat. She would have this last for about 15 minutes when it occurred. She feels weak and fatigued. This feeling is worse when she has these episodes. She denies fever, chills, nausea, vomiting, headache, abdominal pain. She has seen Dr. Kidd about it and has an appointment to follow-up with cardiology and the [facility] however her appointment is not until February 25. When she continued to have symptoms tonight she felt that it was worse so she had her family bring her to the emergency department. She gets diaphoretic with heart racing, short of breath, pressure in chest when event occurs. Timing/Duration: Other (over 3 weeks but felt it was worse tonight) Severity: Severe Modifying Factors: worse with Movement (standing and walking makes it worse) Associated Systoms: No Cough; Diaphoresis; No Fever/Chills, No Headaches, No Loss of Appetite, No Malaise, No Nausea/Vomiting, No Rash, No Seizure, No Shortness of Air, No Syncope, No Weakness Allergies and Home Medications Allergies Coded Allergies: codeine (Verified Allergy, Intermediate, ALTERED MENTAL STATUS, 03/28/19) Patient Home Medication List Home Medication List Reviewed: Yes Amoxicillin/Potassium Clav (Augmentin 875-125 Tablet) 1 Each Tablet, 1 TAB PO BID Prescribed by: ACE LOVELL on 03/28/19 1339 Hydrocodone Bit/Acetaminophen (Lortab 5 Mg Tablet) 1 Tab Tab, 1 EACH PO Q4-6HR PRN for PAIN-MODERATE Prescribed by: LAMAR PACE on 09/18/19 0050 Review of Systems Review of Systems Constitutional: No chills; diaphoresis (during episodes); No fever; malaise EENTM: no symptoms reported Respiratory: see HPI Cardiovascular: see HPI Gastrointestinal: see HPI Genitourinary: no symptoms reported Musculoskeletal: no symptoms reported Skin: No rash Psychiatric/Neurological: Anxiety Past Dytguos-Fjczrv-Gpllsd Hx Patient Social History Tobacco Use?: No Use of E-Cig and/or Vaping dev: No Substance use?: No Alcohol Use?: No Immunizations Up To Date Tetanus Booster (TDap): Less than 5yrs Seasonal Allergies Seasonal Allergies: No Past Medical History Surgeries: Yes (Left Kidney Removal, Colon Resection) Appendectomy Respiratory: No Cardiac: No Neurological: No Genitourinary: No Gastrointestinal: No Musculoskeletal: Yes Chronic Back Pain Endocrine: No HEENT: No Cancer: Yes Kidney Psychosocial: No Integumentary: No Blood Disorders: No Physical Exam Vital Signs Vital Signs - First Documented Capillary Refill : Height, Weight, BMI Height: 5'10.00" Weight: 138lbs. oz. 62.711524ay; 19.00 BMI Method:Stated General Appearance: No Apparent Distress, WD/WN HEENT: PERRL/EOMI, Pharynx Normal Neck: Full Range of Motion, Normal Inspection, Non Tender, Supple Respiratory: Chest Non Tender, Lungs Clear, Normal Breath Sounds, No Accessory Muscle Use, No Respiratory Distress Cardiovascular: Regular Rate, Rhythm, Normal Peripheral Pulses Gastrointestinal: Normal Bowel Sounds, No Organomegaly, No Pulsatile Mass, Non Tender, Soft Rectal: Deferred Extremity: Normal Capillary Refill, Normal Inspection, No Pedal Edema Neurologic/Psychiatric: Alert, Oriented x3 Skin: Normal Color, Warm/Dry Procedures/Interventions Suture Size: 4-0 Progress/Results/Core Measures Suspected Sepsis SIRS Temperature: Pulse: Respiratory Rate: Laboratory Tests 01/23/22 22:05: White Blood Count 7.7 Blood Pressure / Mean: Laboratory Tests 01/23/22 22:05: Creatinine 1.43H, INR Comment 1.0, Platelet Count 213, Total Bilirubin 0.2 Results/Orders Lab Results Laboratory Tests Test 01/23/22 22:05 Range/Units White Blood Count 7.7 4.3-11.0 10^3/uL Red Blood Count 4.09 3.80-5.11 10^6/uL Hemoglobin 13.5 11.5-16.0 g/dL Hematocrit 40 35-52 % Mean Corpuscular Volume 97 80-99 fL Mean Corpuscular Hemoglobin 33 25-34 pg Mean Corpuscular Hemoglobin Concent 34 32-36 g/dL Red Cell Distribution Width 12.7 10.0-14.5 % Platelet Count 213 130-400 10^3/uL Mean Platelet Volume 10.2 9.0-12.2 fL Immature Granulocyte % (Auto) 0 % Neutrophils (%) (Auto) 57 42-75 % Lymphocytes (%) (Auto) 28 12-44 % Monocytes (%) (Auto) 13 H 0-12 % Eosinophils (%) (Auto) 2 0-10 % Basophils (%) (Auto) 1 0-10 % Neutrophils # (Auto) 4.3 1.8-7.8 10^3/uL Lymphocytes # (Auto) 2.1 1.0-4.0 10^3/uL Monocytes # (Auto) 1.0 0.0-1.0 10^3/uL Eosinophils # (Auto) 0.2 0.0-0.3 10^3/uL Basophils # (Auto) 0.1 0.0-0.1 10^3/uL Immature Granulocyte # (Auto) 0.0 0.0-0.1 10^3/uL Prothrombin Time 13.3 12.2-14.7 SEC INR Comment 1.0 0.8-1.4 Activated Partial Thromboplast Time 51 H 24-35 SEC Sodium Level 136 135-145 MMOL/L Potassium Level 4.4 3.6-5.0 MMOL/L Chloride Level 99 98-107 MMOL/L Carbon Dioxide Level 23 21-32 MMOL/L Anion Gap 14 5-14 MMOL/L Blood Urea Nitrogen 41 H 7-18 MG/DL Creatinine 1.43 H 0.60-1.30 MG/DL Estimat Glomerular Filtration Rate 36 BUN/Creatinine Ratio 29 Glucose Level 142 H 70-105 MG/DL Calcium Level 9.4 8.5-10.1 MG/DL Corrected Calcium 9.2 8.5-10.1 MG/DL Magnesium Level 2.0 1.6-2.4 MG/DL Total Bilirubin 0.2 0.1-1.0 MG/DL Aspartate Amino Transf (AST/SGOT) 26 5-34 U/L Alanine Aminotransferase (ALT/SGPT) 16 0-55 U/L Alkaline Phosphatase 76 40-136 U/L Myoglobin 57.5 10.0-92.0 NG/ML Troponin I < 0.30 <0.30 NG/ML Pro-B-Type Natriuretic Peptide 1961.0 H <75.0 PG/ML Total Protein 7.5 6.4-8.2 GM/DL Albumin 4.2 3.2-4.5 GM/DL My Orders Orders - ENYART,GEMMA E MD Cbc With Automated Diff (01/23/22 21:50) Magnesium (01/23/22 21:50) Ekg Tracing (01/23/22 21:50) Comprehensive Metabolic Panel (01/23/22 21:50) Myoglobin Serum (01/23/22 21:50) Protime With Inr (01/23/22 21:50) Partial Thromboplastin Time (01/23/22 21:50) O2 (01/23/22 21:50) Monitor-Rhythm Ecg Trace Only (01/23/22 21:50) Ed Iv/Invasive Line Start (01/23/22 21:50) Troponin I Fs (01/23/22 21:50) Probnp Fs (01/23/22 21:50) Vital Signs/I&O 01/23/22 01/23/22 21:55 21:55 Temp 37.0 Pulse 82 Resp 18 B/P (MAP) 155/77 (103) Pulse Ox 16 97 O2 Delivery Room Air Room Air Capillary Refill : Progress Note #1: Progress Note Obtain basic labs including cardiac enzymes and electrocardiogram. Progress Note #2: Progress Note Labs appear stable without acute significant abnormality. Her CBC and chemistry are both are stable without changes. Her cardiac enzymes are negative. Her electrocardiogram shows multiple PVCs as does her telemetry monitoring. Reass ured patient and family. Counseled on follow-up and return precautions. Advised about findings on testing and advised on getting test results through clinic ECG Initial ECG Impression Date: Jan 23, 2022 Initial ECG Impression Time: 21:55 Initial ECG Rate: 94 Initial ECG Rhythm: Normal Sinus Initial ECG Intervals: Normal Initial ECG Impression: Normal Initial ECG Comparisson: Unchanged Comment Normal sinus rhythm with a heart rate of 94 bpm. AK interval 155 ms. Multiple PVCs both ventricular and supraventricular. QT interval 341 ms with a QTc interval 452 ms. There is no acute ST elevation. Departure Impression Primary Impression: Premature ventricular beats Additional Impressions: Heart palpitations Malaise and fatigue Disposition: 01 HOME, SELF-CARE Condition: Stable Departure-Patient Inst. Decision time for Depature: 22:51 Referrals: TREY KIDD MD (PCP/Family) Primary Care Physician Patient Instructions: Palpitations ED, Weakness ED Add. Discharge Instructions: Your blood work and electrolytes and heart tests appear stable tonight and are not showing signs of heart attack or electrolyte imbalance. You need to continue to have follow up with Cardiology and if you have continued symptoms Dr. Kidd may need to arrange for you to have a Holter monitor or cardiac monitoring for home that would try to catch irregular heart rhythms. All discharge instructions reviewed with patient and/or family. Voiced understanding. GEMMA FISHER MD Jan 23, 2022 22:13
[2022-01-23 22:17] LABS: PROTHROMBIN TIME PATIENT 13.3 SEC (12.2-14.7)
[2022-01-23 22:28] LABS: ALBUMIN 4.2 GM/DL (3.2-4.5); BILIRUBIN,TOTAL 0.2 MG/DL (0.1-1.0); CALCIUM 9.4 MG/DL (8.5-10.1); CREATININE SERUM 1.43 MG/DL (0.60-1.30); POTASSIUM 4.4 MMOL/L (3.6-5.0); TOTAL PROTEIN 7.5 GM/DL (6.4-8.2)
== END 2022-01-23 23:19 | disposition home or self-care (01) ==
LOC: EDUNIT# 21:46 → ER FS 21:47
DX: I49.3 Ventricular premature depolarization (principal); R00.2 Palpitations; R53.81 Other malaise; R53.83 Other fatigue
CPT/HCPCS: 36415; 80053; 83735; 83874; 83880; 84484; 85025; 85610; 85730; 93041

== ENCOUNTER → 2022-01-30 | Outpatient (CLI) | payer MEDICARE, OTHER | LOC: CARD 12:00 | PROVIDERS: ATTEND Family Medicine | DX: I08.2 Rheumatic disorders of both aortic and tricuspid valves (principal); I10 Essential (primary) hypertension | CPT/HCPCS: 93306 ==

== ENCOUNTER 2023-04-14 19:48 | Emergency (ER) | payer MEDICARE, OTHER ==
[~2023-04-14] VITALS: Ht 177.8 cm; Wt 61.8 kg
--- NOTE | 2023-04-14 19:55 | ED Lower Extremity ---
General Stated Complaint: RT FOOT IRRITATION History of Present Illness Date Seen by Provider: Apr 14, 2023 Time Seen by Provider: 19:55 Initial Comments 82-year-old female is here with complaints of a puncture wound to her lateral right ankle which began as a small pustule approximately 3 weeks back. Patient went to the walk-in clinic and was given Keflex for 1 week which she took. Patient has noticed that the lesion has become worse and now has black necrotic tissue and continues to have mild swelling and redness around it. Patient does not have diabetes. Patient has gone to 2 different clinics and was not given any further treatment for it. Denies fever and chills, falls, trauma. Patient is able to ambulate and bear weight. Patient is unsure if she had an insect or spider bite. Allergies and Home Medications Allergies Coded Allergies: codeine (Verified Allergy, Intermediate, ALTERED MENTAL STATUS, 03/28/19) Patient Home Medication List Home Medication List Reviewed: Yes Amoxicillin/Potassium Clav (Augmentin 875-125 Tablet) 1 Each Tablet, 1 TAB PO BID Prescribed by: ACE LOVELL on 03/28/19 1339 Hydrocodone Bit/Acetaminophen (Lortab 5 Mg Tablet) 1 Tab Tab, 1 EACH PO Q4-6HR PRN for PAIN-MODERATE Prescribed by: LAMAR PACE on 09/18/19 0050 Review of Systems Constitutional: no symptoms reported EENTM: no symptoms reported Respiratory: no symptoms reported Cardiovascular: no symptoms reported Gastrointestinal: no symptoms reported Genitourinary: no symptoms reported Skin: other (Cellulitis right ankle, insect bite) Past Qaenaiy-Siiuxk-Xxerib Hx Immunizations Up To Date Tetanus Booster (TDap): Less than 5yrs First/Initial COVID19 Vaccinat: unknown date Second COVID19 Vaccination Pramod: unknown date Seasonal Allergies Seasonal Allergies: No Past Medical History Surgery/Hospitalization HX: carotid, left kidney removal, lump ectomy, colon resection, appendectomy, back, ovary removal,, aortic abd stent Surgeries: Yes (Left Kidney Removal, Colon Resection) Appendectomy Respiratory: No Cardiac: No Neurological: No Genitourinary: No Gastrointestinal: No Musculoskeletal: Yes Chronic Back Pain Endocrine: No HEENT: No Cancer: Yes Kidney Psychosocial: No Integumentary: No Blood Disorders: No Physical Exam Vital Signs Capillary Refill : Height, Weight, BMI Height: 5'10.00" Weight: 138lbs. oz. 62.038888tp; 19.00 BMI Method:Stated General Appearance: WD/WN HEENT: PERRL/EOMI Neck: full range of motion Ankles: right ankle normal range of motion, right ankle no evidence of injury, right ankle soft tissue tenderness (RIGHT LATERAL ANKLE: 0.25 cm ulceration with black necrotic scab material appears as if it is an old puncture wound, possibly a brown recluse spider bite, with surrounding erythema and swelling. It is slightly warm to touch. It does not extend into the leg or the foot. N/V bundle intact), right ankle swelling Feet: right foot non-tender, right foot normal inspection, right foot normal range of motion, right foot no evidence of injury Neurologic/Tendon: normal sensation, normal motor functions Neurologic/Psychiatric: alert, normal mood/affect, oriented x 3 Procedures/Interventions Suture Size: 4-0 Progress/Results/Core Measures Results/Orders My Orders Orders - FRANCK FITCH MD Amoxicillin/Clavulanate Tablet (Augmenti (04/14/23 20:13) Progress Progress Note : Progress Note 1. BROWN RECLUSE SPIDER BITE WITH LOCALIZED CELLULITIS OF RIGHT ANKLE: - Augmentin bid for 10 days with first tab given in ER - Advised antibiotic ointment application to puncture bite, and keep wound clean -Follow-up with PCP in 7 to 10 days. Call for appointment. If swelling and redness spreads to the leg, and/or fever and chills develop, advised to return to the ER. -The patient was seen in the ED, and treated appropriately to presentation at a specific point in time. Patient is informed that there is a possibility that disease and illness can evolve and change in acuity rapidly or slowly after patient is discharged from the ER. Precautionary advice given to the patient for immediate return to ER if symptoms worsen or do not resolve, and to seek emergency care sooner rather than later. Pt also advised on the importance of PCP follow up and compliance with management and follow up plan with PCP and/or specialist, as this is part of the management plan. Pt verbally expressed understanding. Departure Impression Primary Impression: Brown recluse spider bite Additional Impression: Cellulitis of right ankle Disposition: 01 HOME, SELF-CARE Condition: Stable Departure-Patient Inst. Referrals: TREY KIDD MD (PCP/Family) Primary Care Physician Patient Instructions: Wound Care (DC), Spider bites, Cellulitis (Skin Infection), Adult (DC) Add. Discharge Instructions: - Augmentin bid for 10 days with first tab given in ER - Advised antibiotic ointment application to puncture bite, and keep wound clean -Follow-up with PCP in 7 to 10 days. Call for appointment. If swelling and redness spreads to the leg, and/or fever and chills develop, advised to return to the ER. Scripts Amoxicillin/Potassium Clav (Amox Tr-K Clv 875-125 mg Tab) 875 Mg-125 Mg Tablet 1 EACH PO BID for 10 Days, #20 TAB Prov: FRANCK FITCH MD 04/14/23 FRANCK FITCH MD Apr 14, 2023 19:55
[2023-04-14] MEDS ORDERED: AUGMENTIN 875 MG TAB (AMOXICILLIN/CLAVULANATE) PO STA (20:13)
[2023-04-14] MEDS ORDERED: AMOX1TAB12 PO (20:34)
[2023-04-14 20:38] VITALS: BP 197/80
== END 2023-04-14 20:38 | disposition home or self-care (01) ==
LOC: EDUNIT# 19:48 → ER FS 19:49
DX: T63.331A Toxic effect of venom of brown recluse spider, accidental (unintentional), initial encounter (principal); L03.115 Cellulitis of right lower limb
CPT/HCPCS: 99283